=== PATIENT | female | born 1985 | race Caucasian/White ===

== ENCOUNTER 2019-07-10 13:10 | Emergency (ER) | payer SELFPAY ==
--- NOTE | 2019-07-10 15:12 | ED Physician Documentation ---
PD LEN CHEUNG - Stated complaint Stated Complaint: COLD SX - Chief complaint Chief Complaint: General - History obtained from History obtained from: Patient - History of Present Illness Timing - onset: How many months ago (2) Timing - details: Still present Location: Left ear, Sinuses, Nose, Throat Associated symptoms: Congestion, Rhinorrhea. No: Fever Recently seen: Not recently seen - Additional information Additional information: This is a 33-year-old woman who presents with complaints that she has been sick for 2 months since they moved here from [place] is coughing and nasal congestion and then over the past 2 days is just become a constant cough. She said she is been about 2 hours yesterday where she would stop coughing for about a minute and then start coughing again. She gets coughs to the point that she gets lightheaded and feels like she is going to pass out but has not actually lost consciousness. 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 She is coughing up some green phlegm that has streaks of blood in it. She has a stuffy nose and blowing yellow mucus out. She has a postnasal drip and pain across her nasal bridge. She also developed some left Ear pain and a headache. No fevers that she is aware of but she is felt sweaty and clammy especially after coughing . She is been nauseous but no vomiting. Denies . She is not a smoker. She is here with her significant other. She did not get a flu vaccine this year. Review of Systems Constitutional: reports: Chills, Myalgias, Sweats. denies: Fever Ears: reports: Ear pain Nose: reports: Rhinorrhea / runny nose, Congestion Throat: reports: Sore throat Cardiac: denies: Chest pain / pressure Respiratory: reports: Dyspnea, Cough, Hemoptysis GI: reports: Nausea. denies: Vomiting : denies: Now EGA Musculoskeletal: reports: Other (Ribs are hurting from coughing so vigorously) Neurologic: reports: Near syncope PD PAST MEDICAL HISTORY - Present Medications Home Medications: Ambulatory Orders Medication Instructions Recorded Confirmed Azithromycin [Zithromax] 0 mg PO DAILY #6 tablet 07/10/19 Benzonatate [Tessalon Perle] 100 - 200 mg PO TID PRN #30 capsule 07/10/19 - Allergies Allergies/Adverse Reactions: Allergies Allergy/AdvReac Type Severity Reaction Status Date / Time No Known Drug Allergies Allergy Verified 07/10/19 13:14 PD ED PE NORMAL - Vitals Vital signs reviewed: Yes - General General: Alert and oriented X 3, No acute distress, Well developed/nourished - HEENT HEENT: Atraumatic, PERRL, EOMI, Ears normal, Moist mucous membranes, Pharynx benign, Other (Voice sounds very nasally) - Neck Neck: No adenopathy - Cardiac Cardiac: RRR, No murmur, Strong equal pulses - Respiratory Respiratory: No respiratory distress, Clear bilaterally, Other (She had a paroxysmal coughing fit when I was in the room had to lean forward felt very dizzy.) - Abdomen Abdomen: Normal bowel sounds, Soft - Derm Derm: Normal color, Warm and dry - Neuro Neuro: Alert and oriented X 3, leverman 2-12 intact, Normal speech - Psych Psych: Normal mood, Normal affect Results - Vitals Vitals: Vital Signs - 24 hr 07/10/19 13:15 Temperature 37 C Heart Rate 115 H Respiratory 20 Rate Blood Pressure 127/80 O2 Saturation 100 PD MEDICAL DECISION MAKING - ED course Complexity details: d/w patient ED course: We will treat with Zithromax Z-ROME and prescription for Tessalon for the coughing. Continue to use [id number] cough medications if needed. Rest and drink plenty of fluids. She is not cleared to work until 2 days from now. Departure - Departure Disposition: 01 Home, Self Care Clinical Impression: Bronchitis Condition: Good Instructions: ED Upper Resp Infec Abx Tx Follow-Up: [facility] [Provider Group] Prescriptions: Azithromycin [Zithromax] 0 mg PO DAILY #6 tablet Benzonatate [Tessalon Perle] 100 - 200 mg PO TID PRN #30 capsule PRN Reason: Cough Comments: Rest and drink plenty of fluids. Take the Zithromax antibiotic as prescribed 2 tablets today and then 1 tablet each day after that for total of 5 days. Use the Tessalon if needed for coughing. Do not bite or chew these capsule swallow them whole or they will numb up your mouth. May use [id number] cough suppressant as well. Return to work on Wednesday. Forms: Activity restrictions
[2019-07-10 15:42] VITALS: BP 112/70
== END 2019-07-10 16:19 | disposition home or self-care (01) ==
LOC: ED 13:10
DX: J40 Bronchitis, not specified as acute or chronic (principal)
CPT/HCPCS: 99282; 99284

== ENCOUNTER 2021-08-07 11:03 | Outpatient (CLI) | payer MEDICAID ==
[2021-08-07 12:20] LABS: THYROID STIMULATING HORMONE 0.89 uIU/mL (0.34-5.60)
[2021-08-07 12:21] LABS: FREE T4 (FREE THYROXINE) 1.02 ng/dL (0.58-1.64)
[2021-08-07 12:24] LABS: FERRITIN 17.5 ng/mL (11.0-306.8)
--- NOTE | 2021-08-07 13:23 | Ultrasound Report ---
PROCEDURE: Head or Neck Soft Tissue INDICATIONS: ENLARGED THYROID TECHNIQUE: Real-time scanning was performed of the thyroid gland, with image documentation. COMPARISON: None FINDINGS: Right: Thyroid lobe measures 5.6 x 2.4 x 2.4 cm, and is heterogeneous in echotexture. Left: Thyroid lobe measures 5.5 x 2.3 x 2 cm, and is heterogeneous in echotexture. Isthmus: 4.8 mm thick. No discrete thyroid nodule is seen. Right submandibular gland measures 3.7 x 1.6 x 3.2 cm in size. Left submandibular gland measures 4.4 x 1.4 x 3.1 cm in size. Right parotid gland measures 4.7 x 1.3 x 2.9 cm in size. Left parotid gland m easures 4.5 x 1.3 x 2.2 cm in size. Bilateral submandibular and parotid glands are normal and homogen eous in echotexture. No neck soft tissue lymphadenopathy is seen. IMPRESSION: 1. Bilaterally enlarged thyroid gland with slightly heterogeneous thyroid parenchymal echotexture. No discrete thyroid nodule is identified. 2. Bilateral submandibular glands and parotid glands are within normal limits. No neck soft tissue ly mphadenopathy. ACR TI-RADS definitions and recommendations: TI-RADS 1 (benign): 0 points. FNA not needed. TI-RADS 2 (not suspicious): 2 points. FNA not needed. TI-RADS 3 (mildly suspicious): 3 points. "FNA if 2.5 cm or larger, follow up if 1.5 cm or larger (at 1, 3, and 5 years). TI-RADS 4 (moderately suspicious): 4-6 points. "FNA if 1.5 cm or larger, follow up if 1 cm or larger (at 1, 2, 3, and 5 years). TI-RADS 5 (highly suspicious): 7 points or more. "FNA if 1 cm or larger, follow up if 0.5 cm or larger (every year for 5 years). Reviewed by: Favian Cifuentes MD on 08/07/2021 1:22 PM PST Approved by: Favian Cifuentes MD on 08/07/2021 1:22 PM PST Station ID: [id number]
[2021-08-08 09:37] LABS: HEPATITIS B SURFACE ANTIGEN NON-REACTIVE (NON-REACTIVE); HEPATITIS C ANTIBODY NON-REACTIVE (NON-REACTIVE)
[2021-08-08 12:56] LABS: HIV AG/AB 4TH GEN NON-REACTIVE (NON-REACTIVE)
[2021-08-09 16:36] LABS: HSV 1 IGG TYPE SPECIFIC AB 9.19 index; HSV 2 IGG TYPE SPECIFIC AB <0.90 index
== END 2021-08-07 11:04 | disposition home or self-care (01) ==
LOC: DI 11:03
PROVIDERS: ATTEND Nurse Practitioner Obstetrics & Gynecology
DX: E04.9 Nontoxic goiter, unspecified (principal); E05.00 Thyrotoxicosis with diffuse goiter without thyrotoxic crisis or storm; Z11.3 Encounter for screening for infections with a predominantly sexual mode of transmission
CPT/HCPCS: 36415; 81599; 82728; 83540; 84439; 84443; 85025; 86592; 86695; 86696; 86803; 87340; 87389